=== PATIENT | male | born 1985 | race Hispanic/Latino ===

== ENCOUNTER 2017-04-15 11:24 | Emergency (ER) | payer OTHER ==
[~2017-04-15] VITALS: Ht 167.6 cm; Wt 81.7 kg
--- NOTE | 2017-04-17 07:22 | EKG ---
[facility] [address] [facility] [place], [place] [address] Signed Normal sinus rhythm Normal ECG No previous ECGs available Confirmed by KRISTIN GORDON MD ([id number] on 04/17/2017 7:21:56 AM Electronically Signed By: KRISTIN GORDON MD 04/17/17 0722 PATIENT NAME: MOEKENJIWILIAM ESCALONA Electrocardiogram DATE OF : 85 PHYSICIAN: KRISTIN GORDON MD REPORT #: [id number] REPORT IS CONFIDENTIAL AND NOT TO BE RELEASED WITHOUT AUTHORIZATION
== END 2017-04-15 13:07 | disposition home or self-care (01) ==
LOC: ED 11:24
DX: R07.2 Precordial pain (principal); J06.9 Acute upper respiratory infection, unspecified; F17.200 Nicotine dependence, unspecified, uncomplicated
CPT/HCPCS: 71045; 80048; 84484; 85025; 93005; 93010; 99283

== ENCOUNTER 2018-03-31 11:09 | Emergency (ER) | payer OTHER ==
[~2018-03-31] VITALS: Ht 167.6 cm; Wt 81.7 kg
[2018-03-31] MEDS ORDERED: CYCLOBENZAPRINE5 MG PO (13:53)
[2018-03-31] MEDS ORDERED: IBU600 MG PO (13:53)
== END 2018-03-31 14:52 | disposition home or self-care (01) ==
LOC: ED 11:09
DX: S39.012A Strain of muscle, fascia and tendon of lower back, initial encounter (principal); X50.0XXA Overexertion from strenuous movement or load, initial encounter; F17.200 Nicotine dependence, unspecified, uncomplicated
CPT/HCPCS: 72100; 96372; 99283-25; J1885